=== PATIENT | male | born 1985 | race Hispanic/Latino ===

== ENCOUNTER 2021-07-16 23:04 | Emergency (ER) | payer BC, OTHER, SELFPAY ==
[~2021-07-16] VITALS: Ht 172.7 cm; Wt 154.2 kg
[2021-07-16 23:31] VITALS: BP 132/92
[2021-07-17] MEDS ORDERED: IBUPROFEN 600 MG TABLET ONE (00:11)
[2021-07-17] MEDS ORDERED: AZITHROMYCIN 250 MG TABLET PO ONE ×2 (00:11→00:30)
[2021-07-17] MEDS ORDERED: ACETAMINOPHEN 500 MG TABLET ONE (00:12)
[2021-07-17] MEDS ORDERED: ACETAMINOPHEN 500 MG TABLET PO ONE (00:30)
[2021-07-17] MEDS ORDERED: IBUPROFEN 600 MG TABLET PO ONE (00:30)
[2021-07-17] MEDS ORDERED: AZIT250T9 PO (01:00)
[2021-07-17] MEDS ORDERED: DEXA6TAB7 PO (01:00)
[2021-07-17] MEDS ORDERED: ALBUTEROL INHALER 90MCG/INH IH ONE (01:00)
[2021-07-17] MEDS ORDERED: ALBU8.5H8 IH (01:00)
[2021-07-17] MEDS ORDERED: DEXAMETHASONE 4 MG TAB PO ONE (01:00)
[2021-07-17 01:19] VITALS: BP 123/86
== END 2021-07-17 01:21 | disposition home or self-care (01) ==
LOC: EDH 23:04
DX: U07.1 COVID-19 (principal); J40 Bronchitis, not specified as acute or chronic; E11.9 Type 2 diabetes mellitus without complications; I10 Essential (primary) hypertension; Z79.899 Other long term (current) drug therapy; Z98.890 Other specified postprocedural states
CPT/HCPCS: 71045; 87635; 87804 ×2; 99284; C9803; J8540